=== PATIENT | male | born 1950 | race Two or more races ===

== ENCOUNTER 2018-12-22 15:15 | Inpatient (IN) | payer OTHER ==
[~2018-12-22] VITALS: Ht 175.3 cm; Wt 78.9 kg
[2018-12-22] MEDS ORDERED: NORVASC2.5 M1 PO (16:31)
[2018-12-22] MEDS ORDERED: COZAAR50 MG PO (16:31)
[2018-12-22] MEDS ORDERED: SYNTHROID100 MCG PO (16:31)
[2018-12-22] MEDS ORDERED: TAMS0.4C PO (16:32)
[2018-12-22] MEDS ORDERED: VITAMIN D35000 UNIT PO (16:32)
[2018-12-22] MEDS ORDERED: TRADJENTA5 MG PO (16:32)
[2019-01-01] MEDS ORDERED: OXYC1TAB9 PO (10:22)
[2019-01-01] MEDS ORDERED: HYOSCYAMINE0.125 M1 SL (10:22)
== END 2019-01-01 12:01 | disposition home or self-care (01) | DRG 330 ==
LOC: SURG 12-27 06:18 → O/R 12-27 06:18 → SURH 12-27 07:00 → SURG 12-27 13:16 → SURH 12-27 15:14
PROVIDERS: ADMIT Surgery
PROC: 0DTN4ZZ Resection of Sigmoid Colon, Percutaneous Endoscopic Approach (ICD-10-PCS; 2018-12-27)
PROC: 0DBU4ZZ Excision of Omentum, Percutaneous Endoscopic Approach (ICD-10-PCS; 2018-12-27)
PROC: 0DTG4ZZ Resection of Left Large Intestine, Percutaneous Endoscopic Approach (ICD-10-PCS; 2018-12-27)
PROC: 0DBL4ZZ Excision of Transverse Colon, Percutaneous Endoscopic Approach (ICD-10-PCS; 2018-12-27)
PROC: 07TD4ZZ Resection of Aortic Lymphatic, Percutaneous Endoscopic Approach (ICD-10-PCS; 2018-12-27)
PROC: 0DTM4ZZ Resection of Descending Colon, Percutaneous Endoscopic Approach (ICD-10-PCS; principal; 2018-12-27 07:00)
DX: C18.6 Malignant neoplasm of descending colon (principal); C18.7 Malignant neoplasm of sigmoid colon; K62.89 Other specified diseases of anus and rectum; R59.0 Localized enlarged lymph nodes

== ENCOUNTER 2018-12-26 07:10 | Day surgery (SDC) | payer OTHER ==
[~2018-12-26 07:10] MED LIST: COZAAR50 MG PO; NORVASC2.5 M1 PO; SYNTHROID100 MCG PO; TAMS0.4C PO; TRADJENTA5 MG PO; VITAMIN D35000 UNIT PO
== END 2018-12-26 13:15 | disposition home or self-care (01) ==
LOC: AMB-ENDOS 07:10
DX: C18.6 Malignant neoplasm of descending colon (principal)

== ENCOUNTER 2020-02-12 06:05 | Day surgery (SDC) | payer OTHER ==
[~2020-02-12 06:05] MED LIST changes: +HYOSCYAMINE0.125 M1 SL; +OXYC1TAB9 PO
== END 2020-02-12 10:40 | disposition home or self-care (01) ==
LOC: AMB-ENDOS 06:05 → ADM 13:30
PROVIDERS: ATTEND Surgery
DX: K62.89 Other specified diseases of anus and rectum (principal)

== ENCOUNTER 2021-07-15 14:43 | Outpatient (CLI) | payer OTHER | END 2021-07-15 15:00 | disposition home or self-care (01) | LOC: LAB 14:43 | PROVIDERS: ATTEND Internal Medicine Geriatric Medicine | DX: D68.8 Other specified coagulation defects (principal) ==

== ENCOUNTER 2021-07-18 07:45 | Day surgery (SDC) | payer OTHER ==
[~2021-07-18] VITALS: Ht 175.3 cm; Wt 79.8 kg
[2021-07-18] MEDS ORDERED: ULTRACET PO (13:13)
== END 2021-07-18 18:10 | disposition home or self-care (01) ==
LOC: SURH 07:45 → O/R 07:45 → CIR.AMB 07:45 → SURH 10:45 → EDSTATUS 10:45 → SURH 11:45 → CIR.AMB 18:10 → O/R 18:10
PROVIDERS: ATTEND Surgery
DX: C18.6 Malignant neoplasm of descending colon (principal)